=== PATIENT | female | born 2000 | race Caucasian/White ===

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

== ENCOUNTER 2020-09-22 22:05 | Emergency (ER) | payer MEDICAID, OTHER ==
[~2020-09-22] VITALS: Ht 162.6 cm; Wt 68.0 kg
[2020-09-22 22:09] VITALS: BP 144/79
--- NOTE | 2020-09-22 22:10 | NUR ---
TO BED AMBULATORY
--- NOTE | 2020-09-22 22:14 | NUR ---
SEEN AND EXAMINED BY MARIE.
--- NOTE | 2020-09-22 22:19 | NUR ---
Patient discharged with v/s stable. Written and verbal after care instructions given and explained. Patient alert, oriented and verbalized understanding of instructions. Ambulatory with steady gait. All questions addressed prior to discharge. ID band removed. Patient advised to follow up with PMD. Rx of IBUPROFEN, KEFLEX given. Patient educated on indication of medication including possible reaction and side effects. Opportunity to ask questions provided and answered.
[2020-09-22 22:20] VITALS: BP 144/79
== END 2020-09-22 22:19 | disposition home or self-care (01) ==
LOC: MED 22:05
DX: L03.032 Cellulitis of left toe (principal)
CPT/HCPCS: 99283

== ENCOUNTER 2021-07-24 13:06 | Emergency (ER) | payer BC, OTHER ==
[~2021-07-24] VITALS: Ht 162.6 cm; Wt 69.4 kg
[2021-07-24 13:09] VITALS: BP 130/69
--- NOTE | 2021-07-24 13:16 | NUR ---
PT AMBULATED TO BED 2
[2021-07-24 13:48] LABS: BASOPHILS % (AUTO) 0.2 % (0.0-2.0); EOSINOPHILS # (AUTO) 0.1 K/uL (0-0.4); EOSINOPHILS % (AUTO) 1.6 % (0.0-4.0); HEMATOCRIT 39.1 % (36-48); HEMOGLOBIN 13.3 g/dL (12.0-16.0); LYMPHOCYTES # (AUTO) 1.9 K/uL (2.5-16.5); LYMPHOCYTES % (AUTO) 22.4 % (20.5-51.1); MEAN CORPUSCULAR HEMOGLOBIN 28 pg (27-31); MEAN CORPUSCULAR HGB CONC 34 g/dL (33-37); MONOCYTES # (AUTO) 0.5 K/uL (0.8-1.0); NEUTROPHILS # (AUTO) 5.9 K/uL (1.8-7.7); NEUTROPHILS % (AUTO) 69.8 % (42.2-75.2); PLATELET COUNT (AUTO) 306 K/uL (140-450); RED BLOOD CELL COUNT(AUTO) 4.72 MIL/uL (4.20-5.40); WHITE BLOOD COUNT (AUTO) 8.5 K/uL (4.8-10.8)
[2021-07-24 14:18] LABS: APPEARANCE,URINE HAZY (CLEAR); BILIRUBIN,URINE 1+ (NEGATIVE); BLOOD, URINE NEGATIVE (NEGATIVE); COLOR,URINE YELLOW (YELLOW); LEUKOCYTE ESTERASE ,URINE NEGATIVE (NEGATIVE); NITRITE, URINE NEGATIVE (NEGATIVE); PH,URINE 6.5 (5.0-9.0); UGLUCOSE NEGATIVE (NEGATIVE)
[2021-07-24 14:23] LABS: RBC,URINE NONE SEEN /HPF (0-5); WBC,URINE NONE SEEN /HPF (0-5)
--- NOTE | 2021-07-24 14:29 | NUR ---
20 Y/O F BIB SPOUSE FROM HOME, C/O ABD CRAMPING THAT STARTED YESTERDAY. REPORTS PAIN 02/26. PT STATES THAT SHE TOOK TEST 2X WHICH CAME OUT POSITIVE. DENIES N/V/D. DENIES VAGINAL DISCHARGE, BLEEDING, DYSURIA. IN ED, VSS. ABDOMEN SOFT, NONTENDER. URINE SPECIMEN DARK PROVIDED DARK ORANGE IN COLOR. PT POSITIONED COMFORTABLY IN BED WITH 2 SIDERAILS UP. ERMD MADE AWARE OF PT STATUS. PMH: DENIES MED: DENIES NKA
--- NOTE | 2021-07-24 15:32 | NUR ---
The patient's care was reviewed and supervised by Rosalva Cardozo RN.
[2021-07-24] MEDS ORDERED: PYRI25TA15 PO (17:18)
[2021-07-24] MEDS ORDERED: ACET-2619 PO (17:18)
[2021-07-24 17:31] VITALS: BP 128/67
--- NOTE | 2021-07-24 17:31 | NUR ---
Patient discharged with v/s stable. Written and verbal after care ABOUT ABDOMINAL PAIN DURING instructions given. Patient alert, oriented and verbalized understanding of instructions. Ambulatory with steady gait. All questions addressed prior to discharge. ID band removed. Patient advised to follow up with PMD. Rx of ACETAMINOPHEN AND PYRIDOXINE HCL given.
== END 2021-07-24 17:30 | disposition home or self-care (01) ==
LOC: MED 13:06
DX: O20.0 Threatened abortion (principal)
CPT/HCPCS: 36415; 76801; 76817; 81001; 81025; 84702; 85025; 86900; 86901; 99285; Q0092